=== PATIENT | male | born 1985 | race Two or more races ===

== ENCOUNTER 2024-05-20 22:33 | Emergency (ER) | payer MEDICAID ==
[~2024-05-20] VITALS: Ht 170.2 cm; Wt 108.2 kg
[2024-05-20 22:39] VITALS: TEMP 98.4
[2024-05-20 23:52] VITALS: BP 151/100; PULSE 107; RESP 16
[2024-05-20 23:59] LABS: BASOPHILS % (AUTO) 0.6 % (0.0-2.0); EOSINOPHILS % (AUTO) 1.7 % (1.0-6.0); HEMOGLOBIN 14.5 g/dL (13.5-17.5); LYMPHOCYTES # (AUTO) 2.2 K/uL (1.0-4.8); LYMPHOCYTES % (AUTO) 39.5 % (22.0-44.0); MEAN CORPUSCULAR HEMOGLOBIN 26.6 pg (26.0-34.0); MEAN CORPUSCULAR HGB CONC 32.2 G/dL (31.0-37.0); MEAN CORPUSCULAR VOLUME 83 fL (80-100); MONOCYTES # (AUTO) 0.6 K/uL (0.1-1.0); MONOCYTES % (AUTO) 11.3 % (2.0-9.0); NEUTROPHILS # (AUTO) 2.6 K/uL (1.8-7.7); NEUTROPHILS % (AUTO) 46.9 % (40.0-70.0); PLATELET COUNT (AUTO) 197 K/uL (150-450); RED BLOOD CELL COUNT(AUTO) 5.45 MIL/uL (4.50-5.90); WHITE BLOOD COUNT (AUTO) 5.5 K/uL (4.5-11.0)
[2024-05-21 00:11] LABS: ANION GAP 9 mmol/L (8-16); CALCIUM, TOTAL 9.5 mg/dL (8.8-10.5); CARBON DIOXIDE 27 mmol/L (22-29); CHLORIDE 101 mmol/L (98-107); CREATININE 1.22 mg/dL (0.60-1.30); GLOMERULAR FILTR. RATE CALC > 60 mL/min (>60); GLUCOSE,RANDOM 93 mg/dL (70-110); POTASSIUM 4.1 mmol/L (3.5-5.1); SODIUM SERUM 137 mmol/L (136-145); UREA NITROGEN, BLOOD 22 mg/dL (7-18)
[2024-05-21 00:15] LABS: ALCOHOL, BLOOD (SERUM) < 3 mg/dL (0-10)
== END 2024-05-21 05:30 | disposition home or self-care (01) ==
LOC: EMS 22:36
DX: F69 Unspecified disorder of adult personality and behavior (principal); Z79.899 Other long term (current) drug therapy
CPT/HCPCS: 99283; 80048; 85025; 36415; G0480